=== PATIENT | female | born 1980 | race Caucasian/White ===

== ENCOUNTER 2016-12-05 22:42 | Emergency (ER) | payer SELFPAY ==
[2016-12-05 22:57] VITALS: TEMP 97.5; O2SAT 98
--- NOTE | 2016-12-05 23:36 | EDPHY ---
H & P Stated Complaint: ear wax removal, left sided "tendon" issue Time Seen by Provider: 12/05/16 23:15 HPI/ROS: Chief Complaint: Left ear pain, left neck spasm HPI: 36-year-old woman who reports a history of multiple autoimmune issues who is been having discomfort and fullness in her left ear. She is also concerned because she put her finger on the 4th of this month and is uncertain of her tetanus status. She does state that she has had immunizations in the past including immunizations prior to going to [facility] in 2004. She did have a tetanus booster recently. She has been seen in the emergency department both in [place] in [facility] with complaints of ear pain. At those she states that she was started on antibiotics and was also started on prednisone. Today she is complaining of some spasms in her left neck and persistent pain in discomfort in her left ear. She also states that she is feeling occasionally like she is going to black out when she turns her head or bends her head forward. She has not had any syncopal episodes. No recent head injuries. She also has history of depression in the past and has been on Risperdal. No recent fevers or chills. No nausea or vomiting. No chest pain or shortness of breath. States tells me that she is here tonight that she is worried that if she goes home she might have a stroke. ROS: 10 point Review of Systems is negative except as noted in the HPI. PMH: SLE Social History: No smoking, no alcohol, no recreational drug use, patient states she lives in [place] but is unable to get back now because she is not feeling well Family History: non-contributory Physical Exam: Gen: Awake, Alert, No Distress HEENT: Ears: Right ear canal is negative, left ear canal there is a vascular polyp in the mid ear canal in the anterior portion. I am able to easily visualize passes and visualize a normal tympanic membrane Nose: no rhinorrhea Eyes: PERRLA, EOMI Mouth: Moist mucosa Neck: Supple, no JVD, no spasm Chest: No distress Heart: Normal pulses Abd: Normal inspection Back: no CVA tenderness, no midline tenderness Ext: no edema Skin: no rash Neuro: CN II-XII intact, Sensation grossly intact, Strength 5/5 in bilateral upper and lower extremities - Personal History LMP (Females 10-55): 8-14 Days Ago Current Tetanus Diphtheria and Acellular Pertussis (TDAP): Yes Tetanus Vaccine Date: 2016 - Medical/Surgical History Hx Asthma: No Hx Chronic Respiratory Disease: No Hx Diabetes: No Hx Cardiac Disease: No Hx Renal Disease: No Hx Cirrhosis: No Hx Alcoholism: No Hx HIV/AIDS: No Hx Splenectomy or Spleen Trauma: No Other PMH: rhumatoid arthritis, sjogens, sclaroderma, behcets, - Social History Smoking Status: Current every day smoker Constitutional: Initial Vital Signs Temperature (C) 36.4 C 12/05/16 22:52 Heart Rate 86 12/05/16 22:52 Respiratory Rate 18 12/05/16 22:52 Blood Pressure 119/72 12/05/16 22:52 O2 Sat (%) 98 12/05/16 22:52 O2 Delivery Mode Room Air Allergies/Adverse Reactions: Penicillins Allergy (Verified 12/05/16 22:50) Home Medications: Medication Instructions Recorded Naltrexone HCl 12/05/16 Medical Decision Making ED Course/Re-evaluation: Patient here presenting with multiple complaints including possible flare of rheumatologic disease, left ear pain, left sided neck spasming. I do not see signs of acute medical condition at this time. She has a benign appearing ear polyp which she will need to follow up with [facility]. There seemed to be some underlying psychosocial issues going on is the patient is very tangential in her conversation and very labile of motion. She has not actively suicidal at this time. The she does not meet any criteria for mental health hold. She is currently homeless. Will refer her to [facility] and to [facility] for further evaluation. I will put a Lidoderm patch for her cervical spine pain. Remainder exam is unremarkable. Departure - Departure Disposition: Home, Routine, Self-Care Clinical Impression: Neck muscle spasm, Polyp of ear canal Condition: Good Instructions: Muscle Spasm (ED) Additional Instructions: Follow up with Ear Nose and Throat doctor when return to [place] to evaluate your ear polyp. Follow with [facility] for further evaluation of your neck pain. Follow up with [facility] for any concerns about your current worsening stressors. Referrals: [facility],. [Clinic] - As per Instructions [facility],. [Clinic] - As per Instructions
[2016-12-05] MEDS ORDERED: LIDOCAINE 5% 1 EA PATCH TD ONE (23:45)
[2016-12-06 00:45] VITALS: BP 118/77; PULSE 66; RESP 16
[2016-12-06] MEDS ORDERED: PATCH REMOVAL 1 EA PATCH TD SCH (21:00)
== END 2016-12-06 00:40 | disposition home or self-care (01) ==
DX: M62.838 Other muscle spasm (principal); H74.42 Polyp of left middle ear; F17.200 Nicotine dependence, unspecified, uncomplicated